=== PATIENT | male | born 1955 | race American Indian/Alaskan Native ===

== ENCOUNTER 2016-10-29 11:30 | Day surgery (SDC) | payer OTHER ==
[~2016-10-29 11:30] MED LIST: IOPIDINE ONE; IOPIDINE OS ONE; MYDRIACYL ONE; MYDRIACYL OS ONE; NEOFRIN ONE; NEOFRIN OS ONE
[2016-10-29] MEDS ORDERED: IOPIDINE OS ONE (11:50)
[2016-10-29] MEDS ORDERED: NEOFRIN OS ONE (11:50)
[2016-10-29] MEDS ORDERED: MYDRIACYL OS ONE (11:50)
[2016-10-29 11:57] VITALS: BP 148/70
== END 2016-10-29 12:36 | disposition home or self-care (01) ==
LOC: OR 11:30
PROVIDERS: ATTEND Specialist
DX: H26.492 Other secondary cataract, left eye (principal)

== ENCOUNTER 2016-11-05 11:29 | Day surgery (SDC) | payer OTHER ==
[~2016-11-05 11:29] MED LIST changes: +IOPIDINE OD ONE; -IOPIDINE OS ONE; +MYDRIACYL OD ONE; -MYDRIACYL OS ONE; +NEOFRIN OD ONE; -NEOFRIN OS ONE
[2016-11-05] MEDS ORDERED: MYDRIACYL OD ONE (11:55)
[2016-11-05] MEDS ORDERED: IOPIDINE OD ONE (11:55)
[2016-11-05] MEDS ORDERED: NEOFRIN OD ONE (11:55)
[2016-11-05 12:02] VITALS: BP 130/86
== END 2016-11-05 12:29 | disposition home health service (06) ==
LOC: OR 11:29
PROVIDERS: ATTEND Specialist
DX: H26.491 Other secondary cataract, right eye (principal)

== ENCOUNTER 2016-11-09 12:52 | Outpatient (CLI) | payer OTHER ==
--- NOTE | 2016-11-09 14:03 | Mammography Report ---
BONE DEXA:11/09/16 13:15:00 CLINICAL: 61-year-old male. Long-term prednisone use. No comparison. TECHNIQUE: Two site bone DEXA performed on an Hologic scanner. FINDINGS: The average BMD of the lumbar spine L1-L4 is 0.935g/cm squared with a T-score of -1.4 and a Z-score of -1.7. The average BMD of the left hip is 0.899g/cm squared with a T-score of -0.9 and a Z-score of and a 0.8. IMPRESSION: 1. WHO classification: Osteopenia with increase fracture risk based on spine and left hip measurements. 2. The FRAX 10 year fracture probability for a major osteoporotic fracture is 3.2%. 3. The FRAX 10 year fracture probability for hip fracture is 0.3%. Note: FRAX version 3.01. Fracture probability calculated for an untreated patient. Fracture probability may be lower if the patient has received treatment. RECOMMENDATION: Clinical correlation and routine screening. DEFINITIONS: BMD = Bone Mineral Density T-score = BMD related to mean peak bone mass of young adult (mean expressed in Standard Deviation) Z-score = Age matched BMD expressed in SD World Health Organization (WHO) Diagnostic Criteria Normal T-score > -1 SD Osteopenia T-score between -1 and -2.4 SD Osteoporosis T-score -2.5 SD or below NOTE: BMD is not the only risk factor for fracture; also consider factors such as the patient's age, risk of falling, previous osteoporotic fracture, family history of osteoporotic fractures, current smoker, and low body weight. All treatment decisions require clinical judgment and consideration of individual patient factors, including patient preferences, comorbidities, previous drug use and risk factors not captured in the FRAX model (e.g. frailty, falls, vitamin D deficiency, increased bone turnover, interval significant decline in BMD). Fracture probability is calculated for an untreated patient. Fracture probability may be lower if the patient has received treatment. Z-scores are not calculated if >80 years of age.
== END 2016-11-09 12:53 | disposition home or self-care (01) ==
LOC: MAMMO 12:52
PROVIDERS: ATTEND Family Medicine
DX: M81.8 Other osteoporosis without current pathological fracture (principal); M85.88 Other specified disorders of bone density and structure, other site; Z79.52 Long term (current) use of systemic steroids
CPT/HCPCS: 77080